=== PATIENT | male | born 1980 | race Caucasian/White ===

== ENCOUNTER 2019-05-29 11:10 | Emergency (ER) | payer SELFPAY ==
[~2019-05-29] VITALS: Ht 175.3 cm; Wt 95.3 kg
[2019-05-29] MEDS ORDERED: PREDNISONE 20 MG TAB PO ONE (11:45)
[2019-05-29] MEDS ORDERED: CYCLOBENZAPRINE HCL 10 MG TAB PO ONE (11:45)
[2019-05-29] MEDS ORDERED: IBUPROFEN 400 MG TAB PO ONE (11:45)
--- NOTE | 2019-05-29 12:21 | Diagnostic Imaging Report ---
EXAMINATION: CERVICAL 3 VIEWS, SP LUMBAR AP LATERAL 2-3VWS INDICATION: Trauma COMPARISON: None FINDINGS: Cervical spine: No acute fracture or dislocation. Alignment appears anatomic. Mild degenerative changes, most notably at C6-7. Prevertebral soft tissues are normal in thickness. Minimally visualized lung apices are clear. Lumbar spine: No acute fracture or dislocation. Vertebral body heights are maintained. Alignment is normal. No substantial degenerative change. Nonobstructive bowel gas pattern. IMPRESSION: No acute osseous injury of the cervical or lumbar spine. Signed by: Obed Condon MD on 05/29/2019 12:18 PM
== END 2019-05-29 13:18 | disposition home or self-care (01) ==
LOC: ER 11:10
DX: M54.5 Low back pain (principal); M62.838 Other muscle spasm; V43.52XA Car driver injured in collision with other type car in traffic accident, initial encounter; Y92.488 Other paved roadways as the place of occurrence of the external cause
CPT/HCPCS: 72040; 72100; 99282; J7512